=== PATIENT | female | born 1930 | race Caucasian/White ===

== ENCOUNTER 2017-05-09 13:48 | Inpatient (IN) | payer MEDICARE ==
[2017-05-09] VITALS (12 sets, daily range): BP systolic 130–176; BP diastolic 73–99
[~2017-05-09] VITALS: Ht 160 cm; Wt 78.5 kg
--- NOTE | 2017-05-09 15:55 | NUR ---
REC'D PT VIA STRETCHER, ESCORTED BY weight clerk AND DAUGHTER - TRANSFERRED PT TO BED - PT AA&O X 4 - C/O RLQ PAIN AND TENDER TO TOUCH - PT IS DNR - PER DAUGHTER - (FORM ON FILE) -
--- NOTE | 2017-05-09 16:40 | NUR ---
DR. STACK ON UNIT FOR ASSESSMENT - CPOC
--- NOTE | 2017-05-09 17:00 | NUR ---
MIXING MACHINE TENDER CORK GASKET AT BEDSIDE FOR GI BLEED LAB. PT TOLERATED. DR. SIMMONS AT BEDSIDE FOR ASSESSMENT - ORDERS REC'D - CPOC
--- NOTE | 2017-05-09 17:52 | NUR ---
PT IN NUCLEAR MED - PT ON PORTABLE MONITOR - PT C/O LEG CRAMPS - CMP LAB ORDERED FOR ELECTROLYTE ASSESSMENT - CPOC
[2017-05-09 18:05] LABS: HEMATOCRIT 36.7 % (36.0-48.0); HEMOGLOBIN 10.8 g/dL (12-16)
[2017-05-09 18:14] LABS: INR 1.11 (0.85-1.17); PROTIME 14.2 SECONDS (11.6-15.0)
[2017-05-09] MEDS ORDERED: FUROSEMIDE20 MG PO (18:29)
[2017-05-09] MEDS ORDERED: K-DUR20 MEQ PO (18:30)
[2017-05-09] MEDS ORDERED: LEVOTHYROXINE75 MCG PO (18:30)
[2017-05-09] MEDS ORDERED: EFFEXOR XR150 MG PO (18:31)
[2017-05-09] MEDS ORDERED: PLAVIX75 MG PO (18:31)
[2017-05-09] MEDS ORDERED: TRICOR145 MG PO (18:33)
[2017-05-09] MEDS ORDERED: COREG6.25 MG PO (18:33)
[2017-05-09] MEDS ORDERED: ISOSORBIDE MONO30 M1 PO (18:34)
[2017-05-09] MEDS ORDERED: CRANBERRY 400 M1 TA1 PO (18:36)
[2017-05-09] MEDS ORDERED: ASPIRIN81 MG PO (18:36)
[2017-05-09] MEDS ORDERED: VITAMIN D3400 UNI1 PO (18:38)
[2017-05-09] MEDS ORDERED: SENEXON8.6 MG PO (18:38)
[2017-05-09] MEDS ORDERED: ZOCOR80 MG PO (18:39)
[2017-05-09] MEDS ORDERED: MAALOX ADVANCE355 ML PO (18:41)
[2017-05-09 18:50] LABS: ALBUMIN 3.5 g/dL (3.4-5.0); ANION GAP 17.2 mmol/L (8-16); CALCIUM 8.6 mg/dL (8.5-10.1); CREATININE - SERUM 1.2 mg/dL (0.6-1.3); POTASSIUM - SERUM 4.2 mmol/L (3.5-5.1); PROTEIN - SERUM 6.7 g/dL (6.4-8.2)
--- NOTE | 2017-05-09 19:00 | NUR ---
Received patient awake and alert from GI Bleed Scan to 2305, assessment completed per flowsheet. Patient is AO x4 but diplays moments of confusion, reorients easily. Eyes PERRLA @ 4mm with brisk response, sclera is white. S1/S2 noted NSR on telemetry with HR 73, rhythmic and regular. Breathing is slightly shallow and unlabored on 3L via NC with O2 sat 100%, lung sounds clear bilateral upper and mid with diminished lower. Abdomen is round with tenderness noted RLQ, bowel sounds active x4. Dominguez secured in place, clear yellow urine noted in collection. Full ROM all extremities with weakness noted all, cap refill < 3 sec with skin warm/dry to touch. 20g PIV noted L AC, patent and saline locked. Patient c/o pain 1/10 RLQ, repositioned for comfort. no further needs at this time, all VSS and will continue to monitor.
[2017-05-09] MEDS ORDERED: CATAPRES0.1 MG PO (19:11)
[2017-05-09] MEDS ORDERED: MUCINEX600 MG PO (19:14)
[2017-05-09] MEDS ORDERED: KENALOG 0.1 % O15 GM TOPICAL (19:15)
[2017-05-09] MEDS ORDERED: APAP325 MG PO (19:16)
[2017-05-09] MEDS ORDERED: VENTOLIN HFA18 GM INH (19:16)
[2017-05-09] MEDS ORDERED: ALBUTEROL1.25 MG/3 INH (19:17)
--- NOTE | 2017-05-09 20:00 | NUR ---
1 unit FFP intiated per orders, HR 77 and B/P 146/99. Will monitor for s/s of reaction.
--- NOTE | 2017-05-09 21:00 | NUR ---
Patient resting in bed with eyes closed, 1 Unit FFP currently infusing. Patient shows no s/s of reaction, will continue to monitor.
--- NOTE | 2017-05-09 22:00 | NUR ---
I unit FFP completed, HR 82 B/P 166/88. No s/s of transfusion reaction, will continue to monitor.
--- NOTE | 2017-05-09 23:00 | NUR ---
1 unit platelets initiated infusing, HR 82 B/P 169/81. Will monitor for s/s of reaction.
--- NOTE | 2017-05-09 23:00 | NUR ---
Reassessment completed per flowsheet, patient resting in bed with eyes closed. S1/S2 noted NSR on telemetry with HR 84, rhythmic and regular. Breathing is slightly shallow and unlabored on 3L via NC with O2 sat 97%, lung sounds clear bilateral upper and mid with diminished lower. Abdomen is flat and soft with bowel sounds active x4. Full ROM all extremities with all pulses palpable, cap refill < 3 sec. Patient denies pain or other needs at this time, all VSS and will continue to monitor.
[2017-05-10] VITALS (21 sets, daily range): BP systolic 150–181; BP diastolic 73–92; Ht 160 cm; Wt 78.5 kg
--- NOTE | 2017-05-10 | NUR ---
1 unit platelets completed, HR 85 B/P 163/81. No s/s of reaction, will continue to monitor.
--- NOTE | 2017-05-10 01:00 | NUR ---
Patient resting in bed with eyes closed, breathing is slightly shallow and unlabored on 3L via NC. Patient denies pain or other needs at this time, all VSS and will continue to monitor.
--- NOTE | 2017-05-10 02:55 | NUR ---
Reassessment completed per flowsheet, patient resting in bed with eyes closed. S1/S2 noted NSR on telemetry with HR 85, rhythmic and regular. Breathing is slightly shallow on 3L via NC with O2 sat 96%, lung sounds clear bilateral upper and mid with diminished lower. Abdomen is flat and soft with bowel sounds active x4, slight tenderness RLQ. All pulses palpable with cap refill < 3 sec, skin warm/dry to touch. Denies pain or other needs at this time, all VSS and will continue to monitor.
[2017-05-10 04:19] LABS: BASOPHILS 0.3 % (0-2); EOSINOPHILS 2.2 % (0-7); HEMATOCRIT 32.3 % (36.0-48.0); HEMOGLOBIN 9.9 g/dL (12-16); IMMATURE GRANULOCYTES 0.2 % (0-5); LYMPHOCYTES 8.8 % (15-50); MCHC 30.7 g/dL (31.0-37.0); MCV 75.1 fL (80.0-100.0); MONOCYTES 9.3 % (2-11); NEUTROPHILS 79.2 % (40-80); PLATELET COUNT 333 10x3/uL (130-400); RDW 18.9 % (11.5-14.5); WBC 6.4 10x3/uL (4.8-10.8)
[2017-05-10 04:30] LABS: INR 1.05 (0.85-1.17); PROTIME 13.6 SECONDS (11.6-15.0)
[2017-05-10 04:49] LABS: ALBUMIN 3.5 g/dL (3.4-5.0); BILIRUBIN - DIRECT 0.17 mg/dL (0.00-0.30); BILIRUBIN - INDIRECT 0.64 mg/dL (0.00-1.00); BILIRUBIN - TOTAL 0.81 mg/dL (0.2-1.3); CALCIUM 8.7 mg/dL (8.5-10.1); CARBON DIOXIDE 25.1 mmol/L (21.0-32.0); CREATININE - SERUM 1.1 mg/dL (0.6-1.3); PROTEIN - SERUM 6.8 g/dL (6.4-8.2)
[2017-05-10 04:51] LABS: ANION GAP 13.4 mmol/L (8-16); POTASSIUM - SERUM 3.5 mmol/L (3.5-5.1)
--- NOTE | 2017-05-10 05:00 | NUR ---
yl ordered Q8 hours, first dose given 05/09 @ 5032. Next dose given 05/10 @ 2364, will contact pharmacy in AM to change times.
--- NOTE | 2017-05-10 05:00 | NUR ---
Patient on electrolyte protocol, AM labs collected without difficulty. Patient repositioned for comfort, no further needs at this time. All VSS and will continue to monitor.
--- NOTE | 2017-05-10 07:00 | NUR ---
REPORT FROM OFF GOING NURSE. PT IN BED. ALERT AND ORIENETED. DENIES PAIN VERBALLY. ON O2 AT 3L VIA NC. SHALLOW BREATHS NOTED. EXPITORY WHEEZING NOTED. VSS. PIV TO LEFT AC. SEE IV FLOW SHEET. FC PATENT WITH CLEAR YELLOW URINE NOTED. SEE ASSESSMENT FLOW SHEET FOR REMAINING ASSESSMENT. CALL LIGHT IN REACH. WILL CONT POC
--- NOTE | 2017-05-10 07:10 | NUR ---
DR STACK AT BED SIDE. NEW ORDRES TO ADVANCE DIET TO FULL LIQUIDS. BREAKFAST TRAY GIVEN.
--- NOTE | 2017-05-10 10:30 | NUR ---
FAMILY MEMBER AT BED SIDE. QUESTIONS ANSWERED. NO S/SX OF DISTRESS/DISCOMFORT NOTED. CALL LIGHT IN REACH. WILL CONT POC
--- NOTE | 2017-05-10 11:31 | NUR ---
EXPITORY WHEEZING GETTING QUITER. PT TAUGHT TO TCDB. LUNGS CLEAR TO ASULTATION. IN BED RESTING. FAMILY AT BED SIDE.
--- NOTE | 2017-05-10 14:38 | NUR ---
BEDPAN PROVIDED FOR PT PER REQUEST. MEDIUM, FORMED BM WITH NO OBVIOUS S/SX OF BLEEDING NOTED. BM BROWN IN COLOR. PERICARE PREFOMRED. WILL CONT POC.
[2017-05-10 14:42] LABS: APPEARANCE CLEAR (CLEAR); BILIRUBIN NEGATIVE (NEGATIVE); COLOR YELLOW (YELLOW); GLUCOSE NEGATIVE (NEGATIVE); KETONE NEGATIVE (NEGATIVE); NITRITE NEGATIVE (NEGATIVE); PROTEIN NEGATIVE (NEGATIVE)
[2017-05-10 14:43] LABS: BACTERIA MANY /hpf (NONE SEEN); EPITHELIAL CELLS OCC /hpf (0-5); MUCUS <1+ /lpf (NONE SEEN)
--- NOTE | 2017-05-10 15:10 | NUR ---
* Is the patient Alert and Oriented? Yes 0 * How many steps to enter\exit or inside your home? 0 0 * PCP Dr. Calabrese 0 * Preadmission Environment Assisted Living 0 * Facility Name [facility] [place] 0 * ADLs Partial Dependent 0 * Partial ADLs (Assistance needed) Ambulation Medication Management 0 * Equipment Cane Nebulizer Oxygen Rolling Walker Shower Chair 0 * List name and contact numbers for known caregivers / representatives who currently or will assist patient after discharge: Daughter - Myrna Live [phone] (cell) or [phone] (home) 0 * Community resources currently utilized Assisted Living 0 * Please name any agencies selected above. Sayra Hernandez @ [facility] 0 * Additional services required to return to the preadmission environment? Yes 0 * Can the patient safely return to the preadmission environment? Yes 0 * Has this patient been hospitalized within the prior 30 days at any hospital? No Patient Name: DIOGO LR Admission Status: Elective Accout number: [id number] Admission Date: 05-09-2017 : 1928 Admission Diagnosis: Attending: AZUCENA BARAHONA Current LOS: 1 Planned Disposition: Assisted Facility Primary Insurance: MEDICARE A & B Discharge Planning Comments: CM met with patient to assess DC plans/needs. Also spoke with daughter, Myrna Live, via telephone. Patient states she lives in assisted living apartment on [address]. She reports they assist her with meals and housekeeping needs. She wears home O2 at , uses a nebulizer, shower chair & walker. She does not have home health services. Daughter requests referral be sent to [facility] for skilled rehab at discharge. Will send referral when appropriate. CM will follow & assist as needed. Certified Pathology Assistant: Philly Merritt
--- NOTE | 2017-05-10 15:47 | NUR ---
PT DENIES PAIN VERBALLY. IN BED RESTING WITH EYES CLOSED WITH 0 S/SX 0F DISTRESS/DISCOMFORT NOTED. BREATHING NORMAL AND UNLABORED. NO AUDIBLE WHEEZING NOTED. CALL LIGHT IN REACH. WILL CONT POC.
--- NOTE | 2017-05-10 18:36 | NUR ---
PT RESTING IN BED WITH EYES CLOSED WITH 0 S/SX OF DISTRESS/DISCOMFORT NOTED. DENIES PAIN VERBALLY. CALL LIGHT IN REACH. WILL CONT POC
--- NOTE | 2017-05-10 19:20 | NUR ---
SHIFT ASSESSMENT COMPLETE. PT IS A&O X4 WITH NO COMPLAINTS OF PAIN. SHE REFUSES TO WEAR HER BP CUFF AND STATES THAT IT ALMOST BRINGS HER TO TEARS. LAST BP READING WAS 151/80 AT 1910. TEMP 98.7 TEMPORAL, HR 77 BPM NORMAL SINUS RHYTHM, RR 23 SHALLOW, CLEAR LUNG SOUNDS THROUGHOUT ALL LOBES. O2 SAT 98 % 3 L/MIN NC. S1S2 AUDIBLE, ABD IS FLAT AND SOFT. SHE STATES THAT SHE DOES HAVE SOME ABD TENDERNESS AT TIMES IN HER RLQ BUT NOT AT THIS MOMENT. BS ACTIVE X4. RAMÍREZ CATH INTACT DRAINING CLEAR YELLOW URINE. SCD'S REMOVED AND SKIN ASSESSED, WNL. BRUISES NOTED ON UPPER AND LOWER EXT, SMALL REDDENED AREA NOTED ON BUTTOCKS. L AC PIV INFUSING ABX AND NS @ 10 ML/HR. BED ALARM ON, REFILLED REFRESHMENTS. NO FURTHER REQUESTS AT THIS TIME. WILL CONT WITH POC.
--- NOTE | 2017-05-10 20:20 | NUR ---
NEW ORDER'S RECIEVED VIA DR. LEON. X-ANNIE TO MED SURG. WILL CONT TO MONITOR.
--- NOTE | 2017-05-10 23:43 | NUR ---
RECIEVED PT TO FLOOR FROM ICU. CARE RESUMED.
[2017-05-11] VITALS: BP 182/84
[2017-05-11 04:00] VITALS: BP 170/77
[2017-05-11 05:44] LABS: BASOPHILS 0.4 % (0-2); EOSINOPHILS 5.6 % (0-7); IMMATURE GRANULOCYTES 0.2 % (0-5); MCH 23.1 pg (26.0-34.0); MCHC 30.3 g/dL (31.0-37.0); MCV 76.2 fL (80.0-100.0); MEAN PLATELET VOLUME 9.4 fL (7.4-10.4); MONOCYTES 13.3 % (2-11); NEUTROPHILS 62.5 % (40-80); PLATELET COUNT 338 10x3/uL (130-400); RBC 4.33 10x6/uL (4.00-5.40); RDW 19.4 % (11.5-14.5); WBC 5.6 10x3/uL (4.8-10.8)
[2017-05-11 05:55] LABS: ANION GAP 12.8 mmol/L (8-16); CALCIUM 8.6 mg/dL (8.5-10.1); CARBON DIOXIDE 24.1 mmol/L (21.0-32.0); POTASSIUM - SERUM 3.9 mmol/L (3.5-5.1)
[2017-05-11 09:06] VITALS: BP 171/146
[2017-05-11 12:27] VITALS: BP 150/84
--- NOTE | 2017-05-11 14:31 | NUR ---
DENIES ANY NEEDS AT PRESENT.
[2017-05-11 16:14] VITALS: BP 186/96
[2017-05-11 20:00] VITALS: BP 183/88
--- NOTE | 2017-05-11 21:10 | NUR ---
PATIENT RESTING IN BED WITH NO VISIBLE SIGNS OF DISTRESS. BROUGHT PATIENT MILK PER HER REQUEST. PATIENT DENIES OTHER NEEDS AT THIS TIME. BED IN LOWEST POSITION AND CALL LIGHT WITHIN REACH. ENCOURAGED THE PATIENT TO CALL IF SHE HAS NEEDS.
[2017-05-12 05:37] LABS: BASOPHILS 0.1 % (0-2); EOSINOPHILS 3.4 % (0-7); HEMATOCRIT 36.2 % (36.0-48.0); IMMATURE GRANULOCYTES 0.3 % (0-5); LYMPHOCYTES 11.7 % (15-50); MCH 23.2 pg (26.0-34.0); MCHC 30.4 g/dL (31.0-37.0); MCV 76.2 fL (80.0-100.0); MEAN PLATELET VOLUME 9.8 fL (7.4-10.4); MONOCYTES 10.9 % (2-11); NEUTROPHILS 73.6 % (40-80); PLATELET COUNT 292 10x3/uL (130-400); RBC 4.75 10x6/uL (4.00-5.40); RDW 20.1 % (11.5-14.5); WBC 6.8 10x3/uL (4.8-10.8)
[2017-05-12 05:55] LABS: ALBUMIN 3.3 g/dL (3.4-5.0); ANION GAP 14.4 mmol/L (8-16); BILIRUBIN - TOTAL 0.4 mg/dL (0.2-1.3); CALCIUM 8.7 mg/dL (8.5-10.1); CARBON DIOXIDE 24.6 mmol/L (21.0-32.0); PROTEIN - SERUM 5.9 g/dL (6.4-8.2)
--- NOTE | 2017-05-12 07:10 | NUR ---
REPORT RECEIVED, ASSUMED CARE OF PT. RESTING WITH EYES CLOSED, EASILY AROUSED. R WRIST IV INFUSING ORDERED, DRSG C/D/I. RAMÍREZ CATHETER IN PLACE, SECURED WITH STAT-LOCK, PATENT, DRAINING. NO NEEDS VOICED AT THIS TIME. BED IN LOWEST POSITION, SIDE RAILS UP X 2, CALL LIGHT WITHIN REACH.
[2017-05-12 08:43] VITALS: BP 174/88
[2017-05-12 12:59] VITALS: BP 167/84
--- NOTE | 2017-05-12 13:09 | NUR ---
CM REASSESSMENT NOTE: PATIENTS DAUGHTER WORKS AT [facility] AND WANTS TO GO THERE AT DISCHARGE FOR REHAB.
--- NOTE | 2017-05-12 15:25 | NUR ---
Rehab Prescreening Consult recieved and the chart has been reviewed. There is an OT and a PT eval ordered but are still pending. Rehab will follow. Discussed with the CM Ruth Romeo RN. Leslee Lopez RN Clinical Liaison, Rehab
--- NOTE | 2017-05-12 16:33 | NUR ---
CM REASSESSMENT NOTE: PATIENTS DAUGHTER HAD STATED SHE WANTED IP REHAB NOW SHE CALLED AND ONLY WANTS [facility] WHEN PATIENT IS DISCHARGED. LEFT MESSAGE FOR IP REHAB
[2017-05-12 17:46] VITALS: BP 129/79
--- NOTE | 2017-05-12 19:45 | NUR ---
REC'D LYING IN BED. ALERT AND ORIENTED X2. DENIED PAIN AT THIS TIME. IS WANTING A BATH BEFORE BED. TOLD [place] CLOUD. INSTRUCTED TO CALL IF NEEDED ANYTHING, VERBALIZED UNDERSTANDING. BED LOW, LOCKED, CALL LIGHT IN REACH, ALARM ON.
[2017-05-12 20:00] VITALS: BP 176/83
[2017-05-13] VITALS: BP 166/76
[2017-05-13 06:34] LABS: BASOPHILS 0.4 % (0-2); EOSINOPHILS 3.5 % (0-7); HEMATOCRIT 37.1 % (36.0-48.0); HEMOGLOBIN 11.1 g/dL (12-16); IMMATURE GRANULOCYTES 0.1 % (0-5); LYMPHOCYTES 13.6 % (15-50); MCH 22.9 pg (26.0-34.0); MCHC 29.9 g/dL (31.0-37.0); MCV 76.7 fL (80.0-100.0); MEAN PLATELET VOLUME 9.3 fL (7.4-10.4); MONOCYTES 7.7 % (2-11); NEUTROPHILS 74.7 % (40-80); PLATELET COUNT 300 10x3/uL (130-400); RBC 4.84 10x6/uL (4.00-5.40); RDW 20.9 % (11.5-14.5); WBC 7.2 10x3/uL (4.8-10.8)
[2017-05-13 07:07] LABS: ALBUMIN 3.2 g/dL (3.4-5.0); ANION GAP 14.6 mmol/L (8-16); BILIRUBIN - TOTAL 0.29 mg/dL (0.2-1.3); CALCIUM 9.3 mg/dL (8.5-10.1); CARBON DIOXIDE 26.3 mmol/L (21.0-32.0); CREATININE - SERUM 1.1 mg/dL (0.6-1.3); POTASSIUM - SERUM 3.9 mmol/L (3.5-5.1); PROTEIN - SERUM 6.7 g/dL (6.4-8.2)
--- NOTE | 2017-05-13 07:23 | NUR ---
REPORT RECEIVED, ASSUMED CARE OF PT. RESTING WITH EYES SHUT, EASILY AROUSED. R WRIST IV INFUSING FLUIDS ORDERED, DRSG C/D/I. RAMÍREZ CATHETER IN PLACE, SECURED WITH STAT-LOCK, PATENT, DRAINING. NO NEEDS VOICED AT THIS TIME. BED IN LOWEST POSITION, SIDE RAILS UP X 2, CALL LIGHT WITHIN REACH.
[2017-05-13 08:03] VITALS: BP 198/97
[2017-05-13] MEDS ORDERED: LEVAQUIN500 MG PO (09:59)
--- NOTE | 2017-05-13 10:15 | NUR ---
CM REASSESSMENT NOTE: PATIENT IS DISCHARGING TO [facility] TODAY BY FACILITY VAN TO A SKILLED BED. SAILAJA FROM [facility] IS CALLING BACK WITH TIME.
--- NOTE | 2017-05-13 10:25 | NUR ---
CM REASSESSMENT NOTE: CM NOTIFIED PATIENTS DAUGHTER (PHIL) REGARDING PATIENTS D/C TODAY. DAUGHTER WAS IN AGREEMENT WITH PLAN.
--- NOTE | 2017-05-13 11:20 | NUR ---
R HAND IV D/C'D, BLEED CONTROL, BANDAGE APPLIED.
--- NOTE | 2017-05-13 11:50 | NUR ---
REPORT CALLED TO GERMAN AT [facility], TRANSPORTATION WILL BE BACK TO [facility] PT.
--- NOTE | 2017-05-13 11:55 | NUR ---
DISCHARGE INSTRUCTIONS GIVEN TO PT, UNABLE TO SIGN DO TO CONFUSION OF SITUATION.
--- NOTE | 2017-05-13 13:25 | NUR ---
PT DISCHARGED FROM FLOOR WITH PERSONAL BELONGINGS WITH [facility]
== END 2017-05-13 13:26 | DRG 378 ==
LOC: D.ICU 13:48 → D.MS 16:19
PROVIDERS: Family Medicine; Internal Medicine Gastroenterology; ADMIT Family Medicine
DX: K57.91 Diverticulosis of intestine, part unspecified, without perforation or abscess with bleeding (principal); D62 Acute posthemorrhagic anemia; N39.0 Urinary tract infection, site not specified; I25.10 Atherosclerotic heart disease of native coronary artery without angina pectoris; I10 Essential (primary) hypertension; K21.9 Gastro-esophageal reflux disease without esophagitis; F03.90 Unspecified dementia, unspecified severity, without behavioral disturbance, psychotic disturbance, mood disturbance, and anxiety; B96.20 Unspecified Escherichia coli [E. coli] as the cause of diseases classified elsewhere

== ENCOUNTER 2017-05-23 16:05 | Emergency (ER) | payer MEDICARE ==
[2017-05-10 09:11] VITALS: BMI 30.6
[~2017-05-23 16:05] MED LIST: ALBUTEROL1.25 MG/3 INH; APAP325 MG PO; ASPIRIN81 MG PO; CATAPRES0.1 MG PO; COREG6.25 MG PO; CRANBERRY 400 M1 TA1 PO; EFFEXOR XR150 MG PO; FUROSEMIDE20 MG PO; ISOSORBIDE MONO30 M1 PO; K-DUR20 MEQ PO; KENALOG 0.1 % O15 GM TOPICAL; LEVAQUIN500 MG PO; LEVOTHYROXINE75 MCG PO; MAALOX ADVANCE355 ML PO; MUCINEX600 MG PO; PLAVIX75 MG PO; SENEXON8.6 MG PO; TRICOR145 MG PO; VENTOLIN HFA18 GM INH; VITAMIN D3400 UNI1 PO; ZOCOR80 MG PO
[2017-05-23 16:44] LABS: BASOPHILS 0.5 % (0-2); EOSINOPHILS 2.9 % (0-7); HEMATOCRIT 32.4 % (36.0-48.0); HEMOGLOBIN 9.9 g/dL (12-16); IMMATURE GRANULOCYTES 0.4 % (0-5); LYMPHOCYTES 20.3 % (15-50); MCH 23.7 pg (26.0-34.0); MCHC 30.6 g/dL (31.0-37.0); MCV 77.5 fL (80.0-100.0); MEAN PLATELET VOLUME 9.4 fL (7.4-10.4); MONOCYTES 8.8 % (2-11); NEUTROPHILS 67.1 % (40-80); PLATELET COUNT 301 10x3/uL (130-400); RBC 4.18 10x6/uL (4.00-5.40); RDW 23.6 % (11.5-14.5); WBC 5.6 10x3/uL (4.8-10.8)
[2017-05-23 17:04] LABS: APTT 24.1 SECONDS (22.8-39.4); INR 1.04 (0.85-1.17); PROTIME 13.5 SECONDS (11.6-15.0)
[2017-05-23 17:07] LABS: ALBUMIN 3.4 g/dL (3.4-5.0); ANION GAP 12.7 mmol/L (8-16); BILIRUBIN - TOTAL 0.25 mg/dL (0.2-1.3); CALCIUM 8.6 mg/dL (8.5-10.1); POTASSIUM - SERUM 3.7 mmol/L (3.5-5.1); PROTEIN - SERUM 6.6 g/dL (6.4-8.2)
== END 2017-05-23 21:11 | disposition home or self-care (01) ==
LOC: D.ER 16:05
PROVIDERS: Emergency Medicine
DX: Z98.890 Other specified postprocedural states (principal); Z86.79 Personal history of other diseases of the circulatory system; I25.10 Atherosclerotic heart disease of native coronary artery without angina pectoris; K21.9 Gastro-esophageal reflux disease without esophagitis